=== PATIENT | female | born 1960 | race Caucasian/White ===

== ENCOUNTER 2016-12-13 11:07 | Emergency (ER) | payer BC ==
[~2016-12-13] VITALS: Ht 157.5 cm; Wt 56.7 kg
[2016-12-13] MEDS ORDERED: ALPR0.5T PO (11:17)
[2016-12-13] MEDS: LORAZEPAM 0.5 MG TABLET PO ONE (11:30)
[2016-12-13] MEDS ORDERED: LORAZEPAM 1 MG TABLET ONE (11:39)
[2016-12-13 11:43] VITALS: BP 144/97
--- NOTE | 2016-12-13 11:43 | NUR ---
Patient discharged to home in stable conditon. Written and verbal after care instructions given. Patient verbalizes understanding of instructions. Stressed follow up.
== END 2016-12-13 11:44 | disposition home or self-care (01) ==
LOC: ER 11:07
DX: F41.9 Anxiety disorder, unspecified (principal); I10 Essential (primary) hypertension; Z88.1 Allergy status to other antibiotic agents
CPT/HCPCS: A4663